=== PATIENT | female | born 1965 | race Caucasian/White ===

== ENCOUNTER → 2018-09-17 07:54 | Outpatient (CLI) | payer OTHER, SELFPAY ==
--- NOTE | 2018-09-17 08:10 | RAD_ITS ---
STUDY: X-RAY - ESOPHAGUS (BARIUM SWALLOW) WITH FLUOROSCOPY REASON FOR EXAM: Female, 53 years old. One-year history of hoarseness. TECHNIQUE: 12 view(s) of the esophagus were obtained following swallowing of barium. FLUOROSCOPY TIME (if supplied): (0:23) minutes/seconds COMPARISON: None. FINDINGS: There is no demonstrated esophageal foreign body. There is no demonstrated stricture or mucosal abnormality. Normal gastroesophageal junction, without a demonstrated hiatal hernia. The patient ingested a 12 mm tablet of barium without any difficulty. Normal visualized aortic arch and descending thoracic aorta. Normal visualized pulmonary parenchyma. Normal visualized osseous structures of the thorax. RAD/Esophagus Only IMPRESSION: Normal plain film x-ray examination (barium swallow) of the esophagus. Electronically Signed: Zhen Worthy, at 15:16 EST , Service support ,
== END ==
PROVIDERS: Family Provider Preventive Medicine Occupational Medicine; PCP Preventive Medicine Occupational Medicine; Referring Provider Otolaryngology; Visit Provider Otolaryngology
DX: R13.10 Dysphagia, unspecified (principal); R49.0 Dysphonia
CPT/HCPCS: 74220

== ENCOUNTER → 2021-03-27 11:51 | Outpatient (CLI) | payer OTHER, SELFPAY | PROVIDERS: PCP Preventive Medicine Occupational Medicine; Referring Provider Preventive Medicine Occupational Medicine; Visit Provider Preventive Medicine Occupational Medicine | DX: Z01.84 Encounter for antibody response examination (principal) | CPT/HCPCS: 36415; 86769 ==

== ENCOUNTER → 2021-11-11 | Outpatient (CLI) | payer OTHER, SELFPAY ==
--- NOTE | 2021-11-11 12:24 | RAD_ITS ---
INDICATION: M50.30 EXAMINATION/TECHNIQUE: X-RAY - XR Spine Lumbar Min 4 Views COMPARISON: None. FINDINGS: VERTEBRAE: Preserved vertebral body height. No fracture. No spondylolisthesis. Straightening of the lumbar curvature which can be seen with muscle spasm. Mild lumbar spine facet arthropathy most prominent at L5-S1. DISCS: Disc spaces are maintained. INCLUDED ABDOMEN: Nonobstructive bowel gas pattern in the visualized abdomen. Right upper quadrant surgical clips. No radiopaque foreign bodies. RAD/L/S Spine Min 4 Views IMPRESSION: 1. No acute fracture or malalignment. 2. Straightening of the lumbar curvature which can be seen with muscle spasm. 3. Mild lumbar spine facet arthropathy. Electronically Signed: Ivan Stinson, at 15:35 EDT ,
--- NOTE | 2021-11-11 12:24 | RAD_ITS ---
INDICATION: M50.30 EXAMINATION/TECHNIQUE: X-RAY - XR Spine Cervical 4 or 5 Views COMPARISON: None. FINDINGS: VERTEBRAE/DISCS: Mild multilevel degenerative disc disease with minimal vertebral body height loss and narrowing of the intervertebral disc spaces is most prominent at the C3-C6 levels. There is also moderate facet arthropathy at these levels. No acute fracture or malalignment. Odontoid views are unremarkable.. NECK SOFT TISSUES: No prevertebral soft tissue widening. LUNG APICES: Clear. RAD/Cerv Spine 4 or 5 Views IMPRESSION: 1. Mild multilevel degenerative disc disease and moderate facet arthropathy most prominent at the C3-C6 levels. 2. No acute fracture or malalignment. Electronically Signed: Ivan Stinson, at 15:38 EDT ,
== END | disposition home or self-care (01) ==
LOC: RAD 12:21
PROVIDERS: PCP Preventive Medicine Occupational Medicine; Referring Provider Anesthesiology Pain Medicine; Visit Provider Anesthesiology Pain Medicine
DX: M50.30 Other cervical disc degeneration, unspecified cervical region (principal); M51.36 Other intervertebral disc degeneration, lumbar region
CPT/HCPCS: 72050; 72110